=== PATIENT | male | born 1950 | race African-American/Black ===

== ENCOUNTER 2019-03-08 13:54 | Emergency (ER) | payer OTHER ==
[~2019-03-08] VITALS: Ht 167.6 cm; Wt 88.9 kg
[2019-03-08 13:59] VITALS: BP 174/78
--- NOTE | 2019-03-08 14:03 | NUR ---
PT MAB TO BED 3 WITH STEADY GAIT
--- NOTE | 2019-03-08 14:38 | NUR ---
PT C/O L EAR DISCOMFORT X 6 DAYS. PT STATES THAT HE HEARS AN "ECHO" IN HIS EAR AND "THINGS SOUND FAR AWAY". PT DENIES PAIN AT THIS TIME. PT DENIES INJURY OR TRAUMA TO L EAR. NO FOREIGN OBJECT NOTED IN L EAR. ER MD TO SEE PT.
--- NOTE | 2019-03-08 14:55 | NUR ---
PT SLEEPING, ABLE TO VISUALIZE RISE AND FALL OF CHEST. WILL CONTINUE TO MONITOR.
--- NOTE | 2019-03-08 15:03 | NUR ---
MAGDALENA HART AT BEDSIDE.
[2019-03-08 15:58] VITALS: BP 174/78
== END 2019-03-08 15:57 | disposition home or self-care (01) ==
LOC: MED 13:54
DX: H93.12 Tinnitus, left ear (principal); R09.81 Nasal congestion; I10 Essential (primary) hypertension; Z98.890 Other specified postprocedural states
CPT/HCPCS: 99283

== ENCOUNTER 2020-05-16 20:24 | Emergency (ER) | payer OTHER ==
[~2020-05-16] VITALS: Ht 172.7 cm; Wt 71.7 kg
[2020-05-16 20:35] VITALS: BP 190/82
--- NOTE | 2020-05-16 20:35 | NUR ---
SEEN AND EXAMINED BY ANNA
--- NOTE | 2020-05-16 20:45 | NUR ---
SWAB DONE AND SENT TO LAB
[2020-05-16 20:58] VITALS: BP 182/74
--- NOTE | 2020-05-16 20:58 | NUR ---
Patient discharged with v/s stable. Written and verbal after care instructions given and explained. Patient alert, oriented and verbalized understanding of instructions. Ambulatory with steady gait. All questions addressed prior to discharge. ID band removed. Patient advised to follow up with PMD. Rx of PREDNISONE, AZITHROMYCIN, given. Patient educated on indication of medication including possible reaction and side effects. Opportunity to ask questions provided and answered.
== END 2020-05-16 20:58 | disposition home or self-care (01) ==
LOC: MED 20:24
DX: U07.1 COVID-19 (principal); I10 Essential (primary) hypertension
CPT/HCPCS: 87426; 99283; U0003

== ENCOUNTER 2021-04-27 17:38 | Inpatient (IN) | payer OTHER, SELFPAY ==
[~2021-04-27] VITALS: Ht 172.7 cm; Wt 86.6 kg
[2021-04-27 17:42] VITALS: BP 136/61
--- NOTE | 2021-04-27 17:46 | NUR ---
PT AMBULATED TO BED, STEADY GAIT
--- NOTE | 2021-04-27 17:53 | NUR ---
70 Y/O MALE PT C/O ABD PAIN AND LACK OF APPETITE SINCE YESTERDAY, DENIES N/V/D. PT STATES MID ABD 8/10 PAIN RADIATING TO BILAT LOWER QUADRANTS. STATES FEELS LIKE "A BUMP THAT IS VERY HARD." ABD FIRM AND DISTENDED. ACTIVE BOWEL SOUNDS. MEDHX: HTN NKA
--- NOTE | 2021-04-27 18:02 | NUR ---
DR JIMÉNEZ AT BEDSIDE EXAMINING PT
[2021-04-27] MEDS ORDERED: MORPHINE SULFATE 4 MG/ML SYR IVP ONE (18:15)
[2021-04-27] MEDS ORDERED: ONDANSETRON 4 MG/2 ML VIAL IVP ONE (18:15)
--- NOTE | 2021-04-27 18:26 | NUR ---
BLOOD WORK COLLECTED AND HANDED TO ANGELIQUE LEDBETTER
--- NOTE | 2021-04-27 18:30 | NUR ---
CT CONTRAST CONSENT SIGNED, PLACED IN CHART.
[2021-04-27 18:42] LABS: BASOPHILS % (AUTO) 0.2 % (0.0-2.0); HEMATOCRIT 36.3 % (36-52); LYMPHOCYTES # (AUTO) 1.6 K/uL (2.0-11.5); MEAN CORPUSCULAR HEMOGLOBIN 26 pg (27-31); MEAN CORPUSCULAR HGB CONC 33 g/dL (33-37); MEAN CORPUSCULAR VOLUME 78.9 fL (80-94); MONOCYTES # (AUTO) 0.7 K/uL (0.8-1.0); MONOCYTES % (AUTO) 6.3 % (1.7-9.3); NEUTROPHILS % (AUTO) 79.5 % (42.2-75.2); PLATELET COUNT (AUTO) 113 K/uL (140-450); RED BLOOD CELL COUNT(AUTO) 4.61 MIL/uL (4.20-6.10); RED CELL DISTRIBUTION WIDTH 13.5 % (11.6-13.7); WHITE BLOOD COUNT (AUTO) 11.3 K/uL (4.8-10.8)
[2021-04-27 19:03] LABS: ALBUMIN 3.4 g/dL (3.4-5.0); ANION GAP 12.1 (8-16); ASPARTATE AMINOTRANSFERASE 19 U/L (15-37); CARBON DIOXIDE 28.9 mmol/L (21-32); CHLORIDE 97 mmol/L (98-107); CREATININE 1.6 mg/dL (0.6-1.3); GLUCOSE 156 mg/dL (74-106); LIPASE 55 U/L (73-393); SODIUM SERUM 135 mmol/L (136-145); TOTAL BILIRUBIN 0.8 mg/dL (0.0-1.0); UREA NITROGEN, BLOOD 25 mg/dL (7-18)
--- NOTE | 2021-04-27 19:23 | NUR ---
Pt report given to BOBBI CHAMBERS. Transfer of care at this time.
--- NOTE | 2021-04-27 19:24 | NUR ---
PT HAS 18G IV IN LEFT AC; INSERTED PRIOR TO SHIFT CHANGE.
[2021-04-27] MEDS ORDERED: NACL 0.9% 1,000 ML IV ONE (20:10)
[2021-04-27] MEDS ORDERED: POTASSIUM CHLORIDE 10 MEQ TABER PO ONE (20:10)
--- NOTE | 2021-04-27 20:10 | NUR ---
PT BROUGHT TO CT
--- NOTE | 2021-04-27 20:30 | NUR ---
PT RETURN FROM CT
--- NOTE | 2021-04-27 20:30 | NUR ---
PT RETURNED FROM CT
[2021-04-27] MEDS ORDERED: cefTRIAXone 2,000 MG in DEXTROSE 5% 100 ML IV ONE (22:00)
[2021-04-27] MEDS ORDERED: metroNIDAZOLE 500 MG/NS PREMIX 100 ML IV ONE (22:00)
[2021-04-27 22:02] LABS: APPEARANCE,URINE CLEAR (CLEAR); BILIRUBIN,URINE NEGATIVE (NEGATIVE); BLOOD, URINE NEGATIVE (NEGATIVE); COLOR,URINE YELLOW (YELLOW); LEUKOCYTE ESTERASE ,URINE NEGATIVE (NEGATIVE); NITRITE, URINE NEGATIVE (NEGATIVE); UGLUCOSE NEGATIVE (NEGATIVE)
[2021-04-27] MEDS ORDERED: cefTRIAXone 2,000 MG VIAL ONE (23:12)
[2021-04-27] MEDS ORDERED: ACETAMINOPHEN 325 MG TAB PO PRN (23:20)
[2021-04-27] MEDS ORDERED: MORPHINE SULFATE 2 MG/ML SYR IVP PRN (23:20)
[2021-04-27] MEDS ORDERED: ONDANSETRON 4 MG/2 ML VIAL IVP PRN (23:20)
--- NOTE | 2021-04-28 00:43 | NUR ---
PT REFUSED NG-TUBE, PT WAS ADVISED OF IMPLICATIONS AND PT STILL REFUSED.
--- NOTE | 2021-04-28 02:37 | NUR ---
PT IS RESTING COMFORTABLY IN BED W/ HEAD OF BED RAISED; RAILS UP AND BED IN LOWEST SETTING.
[2021-04-28] MEDS: NACL 0.9% 1,000 ML IV SCH ×3 (02:47→19:20)
[2021-04-28] MEDS ORDERED: ERGO50CA PO (06:13)
[2021-04-28] MEDS ORDERED: LON10 PO (06:13)
[2021-04-28] MEDS ORDERED: ASPI-1822 PO (06:13)
[2021-04-28] MEDS ORDERED: METO25TA PO (06:13)
[2021-04-28] MEDS ORDERED: DOXA2TAB1 PO (06:13)
[2021-04-28] MEDS ORDERED: HYDR1TAB73 PO (06:13)
[2021-04-28] MEDS ORDERED: NIFE90TE4 PO (06:13)
[2021-04-28 07:05] LABS: BASOPHILS % (AUTO) 0.3 % (0.0-2.0); EOSINOPHILS # (AUTO) 0.1 K/uL (0-0.4); EOSINOPHILS % (AUTO) 0.9 % (0.0-4.0); HEMATOCRIT 34.6 % (36-52); HEMOGLOBIN 11.4 g/dL (12.0-18.0); LYMPHOCYTES # (AUTO) 1.2 K/uL (2.0-11.5); LYMPHOCYTES % (AUTO) 14.5 % (20.5-51.1); MEAN CORPUSCULAR HEMOGLOBIN 26 pg (27-31); MEAN CORPUSCULAR HGB CONC 33 g/dL (33-37); MEAN CORPUSCULAR VOLUME 79.2 fL (80-94); MONOCYTES # (AUTO) 0.6 K/uL (0.8-1.0); MONOCYTES % (AUTO) 7.7 % (1.7-9.3); NEUTROPHILS # (AUTO) 6.3 K/uL (1.8-7.7); NEUTROPHILS % (AUTO) 76.6 % (42.2-75.2); PLATELET COUNT (AUTO) 105 K/uL (140-450); RED BLOOD CELL COUNT(AUTO) 4.38 MIL/uL (4.20-6.10); RED CELL DISTRIBUTION WIDTH 13.6 % (11.6-13.7); WHITE BLOOD COUNT (AUTO) 8.3 K/uL (4.8-10.8)
--- NOTE | 2021-04-28 07:16 | NUR ---
Pt report given to AMADO HYMAN. Transfer of care at this time.
[2021-04-28 07:19] LABS: ANION GAP 10.9 (8-16); CARBON DIOXIDE 27.4 mmol/L (21-32); CHLORIDE 106 mmol/L (98-107); CREATININE 1.3 mg/dL (0.6-1.3); GLUCOSE 94 mg/dL (74-106); POTASSIUM 3.3 mmol/L (3.5-5.1); SODIUM SERUM 141 mmol/L (136-145); UREA NITROGEN, BLOOD 21 mg/dL (7-18)
--- NOTE | 2021-04-28 07:37 | NUR ---
MARIBELL SWAB DONE AND TAKEN TO THE LAB.
--- NOTE | 2021-04-28 09:12 | NUR ---
PT TO X-RAY VIA WHEELCHAIR.
--- NOTE | 2021-04-28 09:30 | NUR ---
PT BACK FROM X-RAY.
--- NOTE | 2021-04-28 09:50 | NUR ---
SPOKE WITH DR MUNIZ OVER THE PHONE, GAVE HIM THE RESULTS FOR 2 VIEWS X-RA6Y RESULTS.
--- NOTE | 2021-04-28 09:55 | NUR ---
DR MUNIZ ORDERD XR SMALL BOWEL FOLLOW THROUGHT. PHONE ORDERS.
--- NOTE | 2021-04-28 10:03 | NUR ---
DR MUNIZ AT BEDSIDE.
--- NOTE | 2021-04-28 10:31 | NUR ---
XR AT BEDSIDE.
--- NOTE | 2021-04-28 11:37 | NUR ---
ULTRASOUND AT BEDSIDE.
--- NOTE | 2021-04-28 12:46 | NUR ---
PT AMBULATED TO THE BATHROOM, STEADY GAIT.
--- NOTE | 2021-04-28 13:32 | NUR ---
ULTRASOUND AT BEDSIDE.
--- NOTE | 2021-04-28 13:53 | NUR ---
PT HAD 2 BOWEL MOVEMENTS.
--- NOTE | 2021-04-28 15:08 | NUR ---
CALLED DR MUNIZ TOLD HIM ABOUT THE FINDINGS OF SMALL BOWL X-RAY, ORDERED TO PUT PT IN A CLEAR LIQUID DIET.
--- NOTE | 2021-04-28 19:12 | NUR ---
GAVE REPORT TO BOBBI CHAMBERS.
--- NOTE | 2021-04-28 20:08 | NUR ---
PT TAKEN TO RM 105A VIA W/C. CARE TRANSFERED AT THIS TIME.
[2021-04-28 20:15] VITALS: BP 151/78
--- NOTE | 2021-04-28 20:15 | NUR ---
RECEIVED PT TRANSFERRING FROM ER. PT A/A/OX4. PT HAS A LEFT AC IV 20 GAUGE WITH NS RUNNING AT 100 ML/HR. PT IS ABLE TO AMBULATE WITHOUT ASSISTANCE. STEADY GAIT. CLEAR LUNG SOUNDS. SYMMETRICAL BREATHING AND UNLABORED. ACTIVE BOWEL SOUNDS. EDUCATED PT PRINTING MACHINIST LIGHT SYSTEM, ROOM ENVIRONMENT, AND STAFF. CALL LIGHT WITHIN REACH. ALL SAFETY MEASURES TAKEN. WILL CONTINUE TO MONITOR THE PT AND PROVIDE PLAN OF CARE.
--- NOTE | 2021-04-28 23:20 | NUR ---
PT IS AWAKE IN BED. PT IS NOT IN ANY DISTRESS AT THIS TIME AND HAS NO COMPLAINS. CALL LIGHT WITHIN REACH. ALL SAFETY MEASURES TAKEN. WILL CONTINUE TO OBSERVE THE PT.
[2021-04-29] MEDS: NACL 0.9% 1,000 ML IV SCH (01:30)
--- NOTE | 2021-04-29 02:37 | NUR ---
PT IS SLEEPING IN BED. NO SIGNS OF DISTRESS. NO SIGNS OF SOB OR LABORED BREATHING. IVF RUNNING MD ORDER. CALL LIGHT WITHIN REACH. BED AT THE LOWEST POSITION. HEAD OF BED RAISED. WILL CONTINUE TO OBSERVE THE PT.
[2021-04-29 04:00] VITALS: BP 173/80
--- NOTE | 2021-04-29 04:39 | NUR ---
PT IS SLEEPING IN BED. PT IS NOT IN ANY DISTRESS. NO SIGNS OF SOB OR LABORED BREATHING. IVF RUNNING MD ORDER. WILL CONTINUE TO OBSERVE THE PT.
[2021-04-29] MEDS ORDERED: hydrALAZINE 20 MG/ML VIAL IVP PRN (06:50)
--- NOTE | 2021-04-29 07:56 | NUR ---
ENDORSED PT TO DAY SHIFT RN FOR CONTINUITY OF CARE. PT IS IN STABLE CONDITION. SIGNING OUT.
[2021-04-29 08:00] VITALS: BP 178/81
--- NOTE | 2021-04-29 08:41 | NUR ---
PATIENT HAS BEEN SCREENED AND CATEGORIZED MODERATE NUTRITION RISK. PATIENT WILL BE SEEN WITHIN 3-5 DAYS OF ADMISSION. 04/28/21 05/02/[address]
[2021-04-29] MEDS ORDERED: METOPROLOL 50 MG TAB PO SCH (09:00)
[2021-04-29] MEDS ORDERED: KCL 20 MEQ/WATER INJ PREMIX 200 ML IV SCH (09:00)
[2021-04-29] MEDS ORDERED: NIFEdipine 90 MG TABER PO SCH (09:00)
--- NOTE | 2021-04-29 10:00 | NUR ---
PT. STABLE,NOT IN DISTRES. ALL SAFETY MEASURES IN PLACED. WILL CONTINUE TOMONITOR THE PT.
--- NOTE | 2021-04-29 11:00 | NUR ---
KCL 20 MEQ IVPB GIVEN SCHEDULED ORDER. ORDER CONFIRMED WITH . AND NOTIFIED HIM RE. POTASSIUM LEVEL 3.7 TODAY. SAID OK TO GIVE.ORDER CARRIEDOUT.
--- NOTE | 2021-04-29 13:00 | NUR ---
PT. RESTING. STBALE. BREATHINGS EVEN AND UNLABORED. CALL LIGHT WITHIN REACH .WILL CONTINUE TO MONITOR THE PT.
--- NOTE | 2021-04-29 15:42 | NUR ---
RECEIVED REPORT FROM PM SHIFT RN FOR CONTINUITY OF CARE. PT. RESTING ,NOT IN DISTRESS NOTED. ALL SAFETY MEASURES IN PLACED. WILL CONTINIUE TO MONITOR THE PT.
--- NOTE | 2021-04-29 15:47 | NUR ---
RECEIVED DISCHARGE ORDER. CALLED DAUGHTER TO NOTIFY. LEFT VOICE MAIL AWAITING FOR CALL BACK. PT. ALSO TRYING TO CALL DAUGHTER FROM HIS CELL PHONE. NO ANSWER. SAID WILL TRY AGAIN . WILL FOLLOW UP.
--- NOTE | 2021-04-29 17:41 | NUR ---
PER PT. HE SPOKE WITH DAUGHTER AND SHE WILL BE HERE BETWEEN 1800 TO 1830 TO DIRECTOR STATISTICAL PROGRAMMING THE PT. PT. STABLE, NOT IN DISTRESS. SAFETY MEASURES IN PLACED. WILL FOLLO WP WITH DISCHARGE PROCESS.
--- NOTE | 2021-04-29 19:42 | NUR ---
ENDORSED REPORT TO PM SHIFT RN. TO FOLLOW UP WITH DISCHARGE. DAUGHTER STILL NOT HERE
--- NOTE | 2021-04-29 19:45 | NUR ---
RECEIVED BEDSIDE REPORT FROM DAY SHIFT RN FOR CONTINUITY OF CARE. PT IS DRESSED UP WITH BELONGINGS ON HIS SIDE. PT IS READY TO BE DISCHARGE JUST WAITING FOR DAUGHTER TO COME HOME. PT HAS NO IV. WILL CONTINUE TO MONITOR PT
--- NOTE | 2021-04-29 20:00 | NUR ---
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 WHEELED THE PT TO THE FRONT SAFELY WITH ALL HIS BELONGINGS. PT LEFT IN STABLE CONDITION.
[2021-04-29] MEDS ORDERED: DOXAZOSIN 2 MG TAB PO SCH (21:00)
== END 2021-04-29 20:00 | disposition home or self-care (01) | DRG 247 ==
LOC: MED 17:38 → MTU 04-28 03:00 → MMU 04-29 17:52
PROVIDERS: ADMIT Internal Medicine; ATTEND Internal Medicine
DX: K56.600 Partial intestinal obstruction, unspecified as to cause (principal); N17.9 Acute kidney failure, unspecified; I10 Essential (primary) hypertension; J45.909 Unspecified asthma, uncomplicated; R73.03 Prediabetes; Z20.822 Contact with and (suspected) exposure to COVID-19; Z79.82 Long term (current) use of aspirin; Z79.899 Other long term (current) drug therapy; Z86.711 Personal history of pulmonary embolism
CPT/HCPCS: 36415; 74021; 74250; 80048; 80053; 81003; 83690; 84484; 85025; 87081; 93005; 96361; 96365; 96367; 96375; 99285; J0696; J2270; J2405; J3480; J3490; Q0092; Q9967

== ENCOUNTER 2021-07-10 08:21 | Day surgery (SDC) | payer OTHER, SELFPAY ==
[~2021-07-10] VITALS: Ht 170.2 cm; Wt 84.4 kg
[~2021-07-10 08:21] MED LIST: ASPI-1822 PO; DOXA2TAB1 PO; ERGO50CA PO; HYDR1TAB73 PO; LON10 PO; METO25TA PO; NIFE90TE4 PO
[2021-07-10] MEDS ORDERED: fentaNYL citrate 0.05 MG/ML VIAL ONE (10:50)
[2021-07-10] MEDS ORDERED: LIDOCAINE 2% 100 MG/5 ML UJET TP ONE (10:50)
[2021-07-10] MEDS ORDERED: fentaNYL citrate 0.05 MG/ML VIAL IVP ONE (11:40)
== END 2021-07-10 11:55 | disposition home or self-care (01) ==
LOC: MMU 08:21 → MDS 08:21
PROVIDERS: ATTEND Internal Medicine Gastroenterology
DX: Z12.11 Encounter for screening for malignant neoplasm of colon (principal); K57.30 Diverticulosis of large intestine without perforation or abscess without bleeding; E11.9 Type 2 diabetes mellitus without complications; Z98.42 Cataract extraction status, left eye; Z98.41 Cataract extraction status, right eye; Z79.82 Long term (current) use of aspirin; Z79.899 Other long term (current) drug therapy; Z20.822 Contact with and (suspected) exposure to COVID-19
CPT/HCPCS: 45378; 87426; J3010